=== PATIENT | male | born 1955 | race Caucasian/White ===

== ENCOUNTER 2020-05-26 08:14 | Outpatient (CLI) | payer BC | END 2020-05-26 08:15 | disposition home or self-care (01) | LOC: CSHCT 08:14 | PROVIDERS: ATTEND Otolaryngology Plastic Surgery within the Head & Neck | DX: H92.02 Otalgia, left ear (principal); H90.3 Sensorineural hearing loss, bilateral | CPT/HCPCS: 70480 ==